=== PATIENT | female | born 1965 | race Caucasian/White ===

== ENCOUNTER → 2017-11-23 | Outpatient (CLI) | payer BC ==
[~2017-11-23] MED LIST: ACET-1600 PO; None at this Time
== END ==
LOC: STAR 08:37
PROVIDERS: ATTEND Orthopaedic Surgery
DX: Z02.9 Encounter for administrative examinations, unspecified (principal)

== ENCOUNTER 2017-11-30 11:03 | Day surgery (SDC) | payer BC ==
[~2017-11-30] VITALS: Ht 165.1 cm; Wt 60.6 kg
[~2017-11-30 11:03] MED LIST changes: -ACET-1600 PO; +FENTANYL PF 100 MCG/2ML ONE; +MIDAZOLAM 1 MG/ML, 2ML ONE
[2017-11-30 11:24] VITALS: BP 146/92
[2017-11-30] MEDS ORDERED: LACTATED RINGERS 1,000 ML IV SCH (11:28)
[2017-11-30] MEDS ORDERED: ACET-1600 PO (11:29)
[2017-11-30] MEDS ORDERED: EPINEPHRINE 1 MG/ML, 1ML ONE (11:51)
[2017-11-30] MEDS ORDERED: LIDOCAINE/PF 1%, 30ML ONE (11:51)
[2017-11-30] MEDS ORDERED: KETOROLAC 30 MG/1 ML ONE (12:27)
[2017-11-30] MEDS ORDERED: ROCURONIUM 10 MG/ML,10ML ONE (12:27)
[2017-11-30] MEDS ORDERED: CLINDAMYCIN 150 MG/ML, 6ML ONE (12:42)
[2017-11-30] MEDS ORDERED: ALBUTEROL SULFATE 2.5 MG/3 ML NPPB PRN (13:00)
[2017-11-30] MEDS ORDERED: OXYcodone 5 MG/5 ML ORAL.SOL UDC PO PRN (13:00)
[2017-11-30] MEDS ORDERED: MIDAZOLAM 1 MG/ML, 2ML IV PRN (13:00)
[2017-11-30] MEDS ORDERED: MEPERIDINE/PF 25MG/0.5ML IVPush PRN (13:00)
[2017-11-30] MEDS ORDERED: LABETALOL 5MG/ML, 20ML IV PRN (13:00)
[2017-11-30] MEDS ORDERED: ONDANSETRON 2MG/ML, 2ML IVPush PRN (13:00)
[2017-11-30] MEDS ORDERED: PROMETHAZINE 12.5 MG SUPP PR PRN (13:00)
[2017-11-30] MEDS ORDERED: hydrALAzine 20 MG/ML, 1ML IV PRN (13:00)
[2017-11-30] MEDS ORDERED: FENTANYL PF 100 MCG/2ML IV PRN (13:00)
[2017-11-30] MEDS ORDERED: MORPHINE SULFATE 4 MG/ML, 1ML IVPush PRN (13:00)
[2017-11-30] MEDS ORDERED: DIAZEPAM 5 MG/ML, 2ML IVPush PRN (13:00)
[2017-11-30] MEDS ORDERED: ACETAMINOPHEN 325 MG TABLET PO PRN (13:00)
[2017-11-30] MEDS ORDERED: HYDROcodone/APAP 7.5-325MG/15ML UDC PO PRN (13:00)
[2017-11-30] MEDS ORDERED: EPHEDRINE 50 MG/ML, 1ML IVPush PRN (13:00)
[2017-11-30] MEDS ORDERED: CEFAZOLIN 1,000 MG ONE (13:16)
[2017-11-30] MEDS ORDERED: PROPOFOL 10 MG/ML, 20ML ONE (13:16)
[2017-11-30] MEDS ORDERED: DEXAMETHASONE 4 MG/ML, 1ML ONE (13:16)
[2017-11-30] MEDS ORDERED: GLYCOPYRROLATE 0.2MG/1ML, 5ML ONE (13:16)
[2017-11-30] MEDS ORDERED: NEOSTIGMINE 1 MG/ML, 10ML ONE (13:16)
[2017-11-30] MEDS ORDERED: SUCCINYLCHOLINE 20 MG/ML, 10ML ONE (13:16)
[2017-11-30] MEDS ORDERED: MEPERIDINE/PF 25MG/0.5ML ONE (14:08)
[2017-11-30] MEDS ORDERED: PROMETHAZINE 25 MG/ML, 1ML ONE (14:19)
[2017-11-30] MEDS ORDERED: ONDANSETRON ODT 8 MG ONE (14:20)
[2017-11-30] MEDS ORDERED: ONDANSETRON ODT 8 MG PO ONE (14:30)
== END 2017-11-30 16:00 ==
LOC: OUT 11:03
PROVIDERS: ATTEND Orthopaedic Surgery
DX: S43.431A Superior glenoid labrum lesion of right shoulder, initial encounter (principal); M19.011 Primary osteoarthritis, right shoulder; M65.811 Other synovitis and tenosynovitis, right shoulder; M75.41 Impingement syndrome of right shoulder; M75.51 Bursitis of right shoulder; X58.XXXA Exposure to other specified factors, initial encounter; Y93.89 Activity, other specified; Y92.89 Other specified places as the place of occurrence of the external cause; Y99.8 Other external cause status
CPT/HCPCS: 23430; 29823; 29826; 64415; C1713; J0171; J0330; J0690; J1100; J1885; J2175; J2250; J2704; J2710; J3010; J3490; J7120; Q0162